=== PATIENT | male | born 1970 | race Caucasian/White ===

== ENCOUNTER 2017-11-29 13:39 | Emergency (ER) | payer SELFPAY | END 2017-11-29 15:36 | disposition left against medical advice (07) | LOC: FTE 15:36 | DX: Z53.21 Procedure and treatment not carried out due to patient leaving prior to being seen by health care provider (principal) ==

== ENCOUNTER 2019-01-02 05:54 | Observation (INO) | payer OTHER, BC ==
[2019-01-02 06:51] LABS: ADD MAN DIFF? NO
[2019-01-02 06:56] LABS: WHITE BLOOD COUNT 6.8 10^3/ul (4.8-10.8)
[2019-01-02 06:56] LABS: BASOPHILS % 0.4 % (0.0-2.0); EOSINOPHILS # 0.2 10^3/ul (0.0-0.5); EOSINOPHILS % 2.8 % (0.0-7.0); LYMPHOCYTES # 1.4 10^3/ul (0.8-2.9); LYMPHOCYTES % 20.4 % (15.0-51.0); MEAN CORPUSCULAR HEMOGLOBIN 29.2 pg (29.0-33.0); MEAN CORPUSCULAR HGB CONC 33.3 g/dl (32.0-37.0); MEAN CORPUSCULAR VOLUME 87.6 fl (82.0-101.0); MEAN PLATELET VOLUME 9.1 fl (7.4-10.4); MONOCYTE # 0.6 10^3/ul (0.3-0.9); MONOCYTES % 9.3 % (0.0-11.0); NEUTROPHIL # 4.5 10^3/ul (1.6-7.5); NEUTROPHILS % 66.8 % (39.0-77.0); PLATELET COUNT 222 10^3/UL (140-415); RED BLOOD COUNT 4.45 10^6/ul (4.70-6.10); RED CELL DISTRIBUTION WIDTH 11.9 % (11.5-14.5)
[2019-01-02] MEDS: ASPIRIN 325 MG TAB PO (06:58)
[2019-01-02 07:21] LABS: ANION GAP 12 (5-13); BLOOD UREA NITROGEN 11 mg/dl (7-20); CALCIUM 10.1 mg/dl (8.4-10.2); CARBON DIOXIDE 24 mmol/L (21-31); CHLORIDE 106 mmol/L (97-110); CREATININE 0.68 mg/dl (0.61-1.24); Estimated GFR > 60 mL/min (>60); GLUCOSE 150 mg/dl (70-220); POTASSIUM 4.5 mmol/L (3.5-5.1); SODIUM 142 mmol/L (135-144)
[2019-01-02 07:29] LABS: TROPONIN-I 0.013 ng/ml (0.000-0.120)
[2019-01-02] MEDS ORDERED: ONDANSETRON 4 MG INJ IV ×2 (09:30→15:00)
[2019-01-02] MEDS: ACETAMINOPHEN 325 MG TAB PO (11:07)
[2019-01-02 13:28] LABS: CREATINE KINASE 152 IU/L (23-200)
[2019-01-02 13:39] LABS: CK INDEX 0.8; CK-MB 1.25 ng/ml (0.0-2.4); TROPONIN-I < 0.012 ng/ml (0.000-0.120)
[2019-01-02] MEDS ORDERED: hydrALAzine 20 MG INJ IV ×2 (15:00→21:30)
[2019-01-02 16:03] LABS: HEMOGLOBIN A1C 6.7 % (0-5.9)
[2019-01-02 19:52] LABS: CREATINE KINASE 135 IU/L (23-200)
[2019-01-02 20:04] LABS: CK-MB 1.32 ng/ml (0.0-2.4); TROPONIN-I < 0.012 ng/ml (0.000-0.120)
[2019-01-02] MEDS ORDERED: NON-FORMULARY/PATIENT OWN MED (Simvastatin* (Zocor*) 40 MG) PO (21:00)
[2019-01-02] MEDS: INSULIN ASPART [NOVOLOG] 3 ML PEN SC (21:00)
[2019-01-02] MEDS ORDERED: ATORVASTATIN 10 MG TAB PO (21:00)
[2019-01-02] MEDS: FAMOTIDINE 20 MG TAB PO (21:19)
[2019-01-02] MEDS: ATORVASTATIN 20 MG TAB PO (21:19)
[2019-01-03] MEDS: ACCU-CHEK XX (02:00)
[2019-01-03 06:25] LABS: ADD MAN DIFF? NO
[2019-01-03 06:30] LABS: WHITE BLOOD COUNT 5.9 10^3/ul (4.8-10.8)
[2019-01-03 06:30] LABS: BASOPHILS % 0.5 % (0.0-2.0); EOSINOPHILS # 0.2 10^3/ul (0.0-0.5); EOSINOPHILS % 2.9 % (0.0-7.0); HEMOGLOBIN 12.6 g/dl (14.0-18.0); LYMPHOCYTES # 1.5 10^3/ul (0.8-2.9); LYMPHOCYTES % 26.2 % (15.0-51.0); MEAN CORPUSCULAR HGB CONC 33.2 g/dl (32.0-37.0); MEAN CORPUSCULAR VOLUME 87.6 fl (82.0-101.0); MEAN PLATELET VOLUME 9.1 fl (7.4-10.4); MONOCYTE # 0.6 10^3/ul (0.3-0.9); MONOCYTES % 9.4 % (0.0-11.0); NEUTROPHIL # 3.6 10^3/ul (1.6-7.5); NEUTROPHILS % 60.7 % (39.0-77.0); PLATELET COUNT 201 10^3/UL (140-415); RED BLOOD COUNT 4.34 10^6/ul (4.70-6.10); RED CELL DISTRIBUTION WIDTH 11.9 % (11.5-14.5)
[2019-01-03 07:03] LABS: ALANINE AMINOTRANSFERASE 27 IU/L (13-69); ALBUMIN 4.2 g/dl (3.3-4.9); ALKALINE PHOSPHATASE 40 IU/L (42-121); ANION GAP 9 (5-13); ASPARTATE AMINO TRANSFERASE 23 IU/L (15-46); BILIRUBIN,INDIRECT 0.7 mg/dl (0-1.1); BILIRUBIN,TOTAL 0.7 mg/dl (0.2-1.3); BLOOD UREA NITROGEN 13 mg/dl (7-20); CALCIUM 9.1 mg/dl (8.4-10.2); CARBON DIOXIDE 26 mmol/L (21-31); CHLORIDE 104 mmol/L (97-110); CHOLESTEROL 234 mg/dl (100-200); CREATININE 0.75 mg/dl (0.61-1.24); Estimated GFR > 60 mL/min (>60); GLUCOSE 137 mg/dl (70-220); HDL CHOLESTEROL 33 mg/dl (28-71); LDL CHOLESTEROL,CALCULATED 97 mg/dl; MAGNESIUM 1.9 mg/dl (1.7-2.5); POTASSIUM 4.5 mmol/L (3.5-5.1); SODIUM 139 mmol/L (135-144); TOTAL PROTEIN 7.2 g/dl (6.1-8.1); TRIGLYCERIDES 519 mg/dl (0-149)
[2019-01-03] MEDS: INSULIN ASPART [NOVOLOG] 3 ML PEN SC ×3 (07:55→17:29)
[2019-01-03] MEDS: INSULIN GLARGINE [LANTus] (100 UNITS/ML) SYG SC (08:00)
[2019-01-03] MEDS: ASPIRIN (EC) 81 MG TAB PO (08:17)
[2019-01-03] MEDS: FAMOTIDINE 20 MG TAB PO (08:17)
[2019-01-03] MEDS: LISINOPRIL 10 MG TAB PO (08:18)
[2019-01-03] MEDS: REGADENOSON 0.4 MG/5 ML SYG (12:44)
[2019-01-03] MEDS ORDERED: GLUCOSE GEL 15 GRAM TUBE BUCCAL (13:00)
[2019-01-03] MEDS ORDERED: GLUCAGON 1 MG INJ IM (13:00)
[2019-01-03] MEDS ORDERED: GLUCOSE GEL 15 GRAM TUBE PO ×2 (13:00)
[2019-01-03] MEDS ORDERED: DEXTROSE 50% 50 ML SYRINGE IV ×2 (13:00)
[2019-01-03] MEDS: ISOSORBIDE DINITRATE 10 MG TAB PO (13:14)
[2019-01-03] MEDS: ACETAMINOPHEN 325 MG TAB PO (14:35)
== END 2019-01-03 18:34 | disposition home or self-care (01) ==
LOC: E/R 05:54 → TEL 09:04
DX: R07.9 Chest pain, unspecified (principal); E11.9 Type 2 diabetes mellitus without complications; I10 Essential (primary) hypertension; E78.5 Hyperlipidemia, unspecified; Z79.84 Long term (current) use of oral hypoglycemic drugs; F17.290 Nicotine dependence, other tobacco product, uncomplicated; D64.9 Anemia, unspecified; Z97.0 Presence of artificial eye; Z82.49 Family history of ischemic heart disease and other diseases of the circulatory system
CPT/HCPCS: 36415; 71045; 78452; 80048; 80061; 80076; 82550; 82553; 82962; 83036; 83735; 84443; 84484; 85025; 93005; 93017; 93306; 99285-25; G0378

== ENCOUNTER 2019-01-12 17:08 | Emergency (ER) | payer SELFPAY, OTHER | END 2019-01-12 19:33 | disposition left against medical advice (07) | LOC: E/R 17:08 | DX: Z53.21 Procedure and treatment not carried out due to patient leaving prior to being seen by health care provider (principal) | CPT/HCPCS: 93005 ==

== ENCOUNTER 2019-01-22 18:49 | Inpatient (IN) | payer OTHER ==
[2019-01-22 20:13] LABS: ADD MAN DIFF? NO
[2019-01-22 20:14] LABS: WHITE BLOOD COUNT 7.2 10^3/ul (4.8-10.8)
[2019-01-22 20:14] LABS: BASOPHILS % 0.3 % (0.0-2.0); EOSINOPHILS # 0.1 10^3/ul (0.0-0.5); EOSINOPHILS % 1.8 % (0.0-7.0); HEMATOCRIT 34.5 % (42.0-52.0); HEMOGLOBIN 11.6 g/dl (14.0-18.0); LYMPHOCYTES # 1.7 10^3/ul (0.8-2.9); LYMPHOCYTES % 23.5 % (15.0-51.0); MEAN CORPUSCULAR HEMOGLOBIN 29.4 pg (29.0-33.0); MEAN CORPUSCULAR HGB CONC 33.6 g/dl (32.0-37.0); MEAN CORPUSCULAR VOLUME 87.3 fl (82.0-101.0); MEAN PLATELET VOLUME 9.1 fl (7.4-10.4); MONOCYTE # 0.7 10^3/ul (0.3-0.9); MONOCYTES % 9.9 % (0.0-11.0); NEUTROPHIL # 4.6 10^3/ul (1.6-7.5); NEUTROPHILS % 64.2 % (39.0-77.0); PLATELET COUNT 203 10^3/UL (140-415); RED BLOOD COUNT 3.95 10^6/ul (4.70-6.10); RED CELL DISTRIBUTION WIDTH 11.9 % (11.5-14.5)
[2019-01-22 20:33] LABS: ANION GAP 9 (5-13); BLOOD UREA NITROGEN 11 mg/dl (7-20); CARBON DIOXIDE 25 mmol/L (21-31); CHLORIDE 107 mmol/L (97-110); CREATININE 0.87 mg/dl (0.61-1.24); Estimated GFR > 60 mL/min (>60); GLUCOSE 143 mg/dl (70-220); POTASSIUM 3.9 mmol/L (3.5-5.1); SODIUM 141 mmol/L (135-144)
[2019-01-22] MEDS: ENOXAPARIN 100 MG/ML SYG SC (21:14)
[2019-01-22] MEDS: ASPIRIN 81 MG TAB PO (21:14)
[2019-01-22] MEDS: NITROGLYCERIN 2% 1 GM OINT PKT TD (21:15)
[2019-01-23] MEDS ORDERED: ONDANSETRON 4 MG INJ IV (00:30)
[2019-01-23] MEDS ORDERED: ALBUTEROL/IPRATROPIUM (NEB) 3 ML AMP HHN (00:30)
[2019-01-23] MEDS ORDERED: NACL 0.9% 3 ML SYG IV (00:30)
[2019-01-23] MEDS ORDERED: NITROGLYCERIN (SL) 0.4 MG TAB SL (00:30)
[2019-01-23 02:06] LABS: CREATINE KINASE 407 IU/L (23-200)
[2019-01-23 02:19] LABS: CK INDEX 5.5
[2019-01-23 06:08] LABS: ADD MAN DIFF? NO
[2019-01-23 06:14] LABS: WHITE BLOOD COUNT 7.3 10^3/ul (4.8-10.8)
[2019-01-23 06:14] LABS: BASOPHILS % 0.3 % (0.0-2.0); EOSINOPHILS # 0.1 10^3/ul (0.0-0.5); EOSINOPHILS % 1.9 % (0.0-7.0); HEMATOCRIT 36.1 % (42.0-52.0); HEMOGLOBIN 12.1 g/dl (14.0-18.0); LYMPHOCYTES # 1.5 10^3/ul (0.8-2.9); LYMPHOCYTES % 20.6 % (15.0-51.0); MEAN CORPUSCULAR HEMOGLOBIN 29.4 pg (29.0-33.0); MEAN CORPUSCULAR HGB CONC 33.5 g/dl (32.0-37.0); MEAN CORPUSCULAR VOLUME 87.6 fl (82.0-101.0); MEAN PLATELET VOLUME 9.7 fl (7.4-10.4); MONOCYTE # 0.6 10^3/ul (0.3-0.9); MONOCYTES % 8.4 % (0.0-11.0); NEUTROPHILS % 68.4 % (39.0-77.0); PLATELET COUNT 192 10^3/UL (140-415); RED BLOOD COUNT 4.12 10^6/ul (4.70-6.10); RED CELL DISTRIBUTION WIDTH 11.9 % (11.5-14.5)
[2019-01-23] MEDS ORDERED: GLUCAGON 1 MG INJ IM (06:30)
[2019-01-23] MEDS ORDERED: DEXTROSE 50% 50 ML SYRINGE IV ×2 (06:30)
[2019-01-23] MEDS ORDERED: GLUCOSE GEL 15 GRAM TUBE BUCCAL (06:30)
[2019-01-23] MEDS ORDERED: GLUCOSE GEL 15 GRAM TUBE PO ×2 (06:30)
[2019-01-23 07:06] LABS: ALANINE AMINOTRANSFERASE 39 IU/L (13-69); ALBUMIN 4.1 g/dl (3.3-4.9); ALBUMIN/GLOBULIN RATIO 1.36; ALKALINE PHOSPHATASE 45 IU/L (42-121); ANION GAP 10 (5-13); ASPARTATE AMINO TRANSFERASE 54 IU/L (15-46); BILIRUBIN,INDIRECT 0.7 mg/dl (0-1.1); BILIRUBIN,TOTAL 0.7 mg/dl (0.2-1.3); BLOOD UREA NITROGEN 10 mg/dl (7-20); CALCIUM 9.1 mg/dl (8.4-10.2); CARBON DIOXIDE 23 mmol/L (21-31); CHLORIDE 107 mmol/L (97-110); CHOL/HDL RATIO 4.6 RATIO; CHOLESTEROL 143 mg/dl (100-200); CREATININE 0.78 mg/dl (0.61-1.24); Estimated GFR > 60 mL/min (>60); GLUCOSE 125 mg/dl (70-220); HDL CHOLESTEROL 31 mg/dl (28-71); LDL CHOLESTEROL,CALCULATED 52 mg/dl; MAGNESIUM 1.8 mg/dl (1.7-2.5); POTASSIUM 3.9 mmol/L (3.5-5.1); SODIUM 140 mmol/L (135-144); TOTAL PROTEIN 7.1 g/dl (6.1-8.1); TRIGLYCERIDES 300 mg/dl (0-149)
[2019-01-23 07:13] LABS: HEMOGLOBIN A1C 6.4 % (0-5.9)
[2019-01-23] MEDS: INSULIN ASPART [NOVOLOG] 3 ML PEN SC ×5 (07:44→20:12)
[2019-01-23] MEDS: LISINOPRIL 10 MG TAB PO (08:15)
[2019-01-23] MEDS: RANOLAZINE (SR) 500 MG TAB PO ×2 (08:15→20:14)
[2019-01-23] MEDS: ASPIRIN (EC) 81 MG TAB PO (08:15)
[2019-01-23] MEDS: ISOSORBIDE DINITRATE 10 MG TAB PO ×3 (08:15→20:15)
[2019-01-23] MEDS: ENOXAPARIN 100 MG/ML SYG SC ×2 (08:37→20:23)
[2019-01-23] MEDS ORDERED: ENOXAPARIN 40 MG/0.4 ML SYG SC (09:00)
[2019-01-23 09:44] LABS: CREATINE KINASE 463 IU/L (23-200)
[2019-01-23 09:54] LABS: CK INDEX 6.5
[2019-01-23] MEDS: ACETAMINOPHEN 325 MG TAB PO (13:25)
[2019-01-23 15:34] LABS: CREATINE KINASE 463 IU/L (23-200)
[2019-01-23 15:44] LABS: CK INDEX 5.2
[2019-01-23] MEDS ORDERED: hydrALAzine 20 MG INJ IV (17:30)
[2019-01-23] MEDS: ATORVASTATIN 80 MG TAB PO (20:15)
[2019-01-23] MEDS ORDERED: ATORVASTATIN 40 MG TAB PO (21:00)
[2019-01-24] MEDS: ACCU-CHEK XX (01:56)
[2019-01-24] MEDS: DIAZEPAM 5 MG TAB PO (07:00)
[2019-01-24] MEDS: DIPHENHYDRAMINE 50 MG CAP PO (07:00)
[2019-01-24] MEDS: INSULIN ASPART [NOVOLOG] 3 ML PEN SC ×4 (07:55→20:29)
[2019-01-24 08:19] LABS: ADD MAN DIFF? NO
[2019-01-24] MEDS: ASPIRIN (EC) 81 MG TAB PO (08:19)
[2019-01-24] MEDS: ISOSORBIDE DINITRATE 10 MG TAB PO ×3 (08:19→20:29)
[2019-01-24] MEDS: RANOLAZINE (SR) 500 MG TAB PO ×2 (08:19→20:28)
[2019-01-24 08:28] LABS: BASOPHILS % 0.3 % (0.0-2.0); EOSINOPHILS # 0.1 10^3/ul (0.0-0.5); EOSINOPHILS % 1.9 % (0.0-7.0); HEMATOCRIT 38.6 % (42.0-52.0); LYMPHOCYTES # 1.5 10^3/ul (0.8-2.9); LYMPHOCYTES % 23.7 % (15.0-51.0); MEAN CORPUSCULAR HEMOGLOBIN 29.3 pg (29.0-33.0); MEAN CORPUSCULAR HGB CONC 33.7 g/dl (32.0-37.0); MEAN CORPUSCULAR VOLUME 86.9 fl (82.0-101.0); MONOCYTE # 0.7 10^3/ul (0.3-0.9); MONOCYTES % 11.1 % (0.0-11.0); NEUTROPHILS % 62.5 % (39.0-77.0); PLATELET COUNT 214 10^3/UL (140-415); RED BLOOD COUNT 4.44 10^6/ul (4.70-6.10); RED CELL DISTRIBUTION WIDTH 12.1 % (11.5-14.5)
[2019-01-24 08:28] LABS: WHITE BLOOD COUNT 6.3 10^3/ul (4.8-10.8)
[2019-01-24 08:45] LABS: CREATINE KINASE 270 IU/L (23-200)
[2019-01-24 08:51] LABS: PROTIME 13.3 Sec (11.9-14.9)
[2019-01-24 08:52] LABS: PARTIAL THROMBOPLASTIN TIME 35.3 Sec (23.0-35.0)
[2019-01-24 08:53] LABS: ANION GAP 10 (5-13); BLOOD UREA NITROGEN 11 mg/dl (7-20); CALCIUM 9.1 mg/dl (8.4-10.2); CARBON DIOXIDE 24 mmol/L (21-31); CHLORIDE 106 mmol/L (97-110); CREATININE 0.81 mg/dl (0.61-1.24); Estimated GFR > 60 mL/min (>60); GLUCOSE 131 mg/dl (70-220); MAGNESIUM 1.9 mg/dl (1.7-2.5); PHOSPHORUS 3.9 mg/dl (2.5-4.9); POTASSIUM 4.5 mmol/L (3.5-5.1); SODIUM 140 mmol/L (135-144)
[2019-01-24 08:57] LABS: CK INDEX 3.4
[2019-01-24 08:59] LABS: CK-MB 9.05 ng/ml (0.0-2.4)
[2019-01-24] MEDS: ATORVASTATIN 80 MG TAB PO (20:28)
[2019-01-24] MEDS: ENOXAPARIN 100 MG/ML SYG SC (20:58)
[2019-01-25] MEDS: ACCU-CHEK XX (02:00)
[2019-01-25 06:04] LABS: ADD MAN DIFF? NO
[2019-01-25 06:07] LABS: BASOPHILS % 0.3 % (0.0-2.0); EOSINOPHILS # 0.1 10^3/ul (0.0-0.5); EOSINOPHILS % 2.3 % (0.0-7.0); HEMATOCRIT 38.6 % (42.0-52.0); LYMPHOCYTES # 1.3 10^3/ul (0.8-2.9); LYMPHOCYTES % 22.3 % (15.0-51.0); MEAN CORPUSCULAR HEMOGLOBIN 29.4 pg (29.0-33.0); MEAN CORPUSCULAR HGB CONC 33.7 g/dl (32.0-37.0); MEAN CORPUSCULAR VOLUME 87.3 fl (82.0-101.0); MEAN PLATELET VOLUME 9.5 fl (7.4-10.4); MONOCYTE # 0.7 10^3/ul (0.3-0.9); MONOCYTES % 11.2 % (0.0-11.0); NEUTROPHIL # 3.8 10^3/ul (1.6-7.5); NEUTROPHILS % 63.6 % (39.0-77.0); PLATELET COUNT 204 10^3/UL (140-415); RED BLOOD COUNT 4.42 10^6/ul (4.70-6.10); RED CELL DISTRIBUTION WIDTH 11.9 % (11.5-14.5)
[2019-01-25 06:43] LABS: ANION GAP 11 (5-13); BLOOD UREA NITROGEN 13 mg/dl (7-20); CARBON DIOXIDE 23 mmol/L (21-31); CHLORIDE 106 mmol/L (97-110); CREATININE 0.83 mg/dl (0.61-1.24); Estimated GFR > 60 mL/min (>60); GLUCOSE 147 mg/dl (70-220); POTASSIUM 4.3 mmol/L (3.5-5.1); SODIUM 140 mmol/L (135-144)
[2019-01-25 07:01] LABS: PHOSPHORUS 4.3 mg/dl (2.5-4.9)
[2019-01-25] MEDS: INSULIN ASPART [NOVOLOG] 3 ML PEN SC ×4 (07:55→21:00)
[2019-01-25] MEDS: ASPIRIN (EC) 81 MG TAB PO (08:24)
[2019-01-25] MEDS: RANOLAZINE (SR) 500 MG TAB PO ×2 (08:25→21:58)
[2019-01-25] MEDS: ISOSORBIDE DINITRATE 10 MG TAB PO ×3 (08:25→21:58)
[2019-01-25] MEDS ORDERED: HEPARIN 1000 UNITS/ML 10 ML INJ (08:42)
[2019-01-25] MEDS ORDERED: VERAPAMIL 5 MG INJ (08:42)
[2019-01-25] MEDS ORDERED: MIDAZOLAM 1 MG/ML 2 ML INJ (08:42)
[2019-01-25] MEDS ORDERED: IODIXANOL LOCM 100 ML BTL (08:42)
[2019-01-25] MEDS ORDERED: LIDOCAINE 1% (MDV) 20 ML INJ (08:42)
[2019-01-25] MEDS ORDERED: NITROGLYCERIN (IC) 100 MCG/ML INJ (08:42)
[2019-01-25] MEDS ORDERED: FENTAnyl 50 MCG/ML VIAL (08:42)
[2019-01-25] MEDS ORDERED: TICAGRELOR 90 MG TABLET (10:34)
[2019-01-25] MEDS ORDERED: ASPIRIN 325 MG TAB (10:35)
[2019-01-25] MEDS ORDERED: BIVALIRUDIN 250MG /NS 50 ML 50 ML IVPB (10:45)
[2019-01-25] MEDS ORDERED: OXYCODONE/ACETAMINOPHEN (5/325) TAB PO (11:00)
[2019-01-25] MEDS ORDERED: ACETAMINOPHEN 325 MG TAB PO (11:00)
[2019-01-25] MEDS ORDERED: ONDANSETRON 4 MG INJ IV (11:00)
[2019-01-25] MEDS ORDERED: AL HYDROX/MG HYDROX/SIMETH 30 ML CUP PO (11:00)
[2019-01-25] MEDS: SOD CHLORIDE 0.9% 1,000 ML IV (11:34)
[2019-01-25] MEDS: ATORVASTATIN 80 MG TAB PO (21:26)
[2019-01-25] MEDS: TICAGRELOR 90 MG TABLET PO (21:27)
[2019-01-26] MEDS: ACCU-CHEK XX (02:00)
[2019-01-26 05:55] LABS: ADD MAN DIFF? NO
[2019-01-26 06:06] LABS: WHITE BLOOD COUNT 7.7 10^3/ul (4.8-10.8)
[2019-01-26 06:06] LABS: BASOPHILS % 0.1 % (0.0-2.0); EOSINOPHILS # 0.1 10^3/ul (0.0-0.5); EOSINOPHILS % 1.7 % (0.0-7.0); HEMOGLOBIN 12.4 g/dl (14.0-18.0); LYMPHOCYTES # 1.3 10^3/ul (0.8-2.9); LYMPHOCYTES % 16.9 % (15.0-51.0); MEAN CORPUSCULAR HEMOGLOBIN 29.2 pg (29.0-33.0); MEAN CORPUSCULAR HGB CONC 33.5 g/dl (32.0-37.0); MEAN CORPUSCULAR VOLUME 87.3 fl (82.0-101.0); MEAN PLATELET VOLUME 9.8 fl (7.4-10.4); MONOCYTE # 0.8 10^3/ul (0.3-0.9); MONOCYTES % 9.8 % (0.0-11.0); NEUTROPHIL # 5.5 10^3/ul (1.6-7.5); NEUTROPHILS % 71.2 % (39.0-77.0); PLATELET COUNT 198 10^3/UL (140-415); RED BLOOD COUNT 4.24 10^6/ul (4.70-6.10); RED CELL DISTRIBUTION WIDTH 11.9 % (11.5-14.5)
[2019-01-26 06:31] LABS: ANION GAP 11 (5-13); BLOOD UREA NITROGEN 11 mg/dl (7-20); CALCIUM 9.1 mg/dl (8.4-10.2); CARBON DIOXIDE 23 mmol/L (21-31); CHLORIDE 106 mmol/L (97-110); CREATININE 0.86 mg/dl (0.61-1.24); Estimated GFR > 60 mL/min (>60); GLUCOSE 137 mg/dl (70-220); POTASSIUM 4.2 mmol/L (3.5-5.1); SODIUM 140 mmol/L (135-144)
[2019-01-26] MEDS: INSULIN ASPART [NOVOLOG] 3 ML PEN SC ×2 (07:35→12:21)
[2019-01-26] MEDS: ISOSORBIDE DINITRATE 10 MG TAB PO ×2 (08:42→12:52)
[2019-01-26] MEDS: TICAGRELOR 90 MG TABLET PO (08:46)
[2019-01-26] MEDS: RANOLAZINE (SR) 500 MG TAB PO (08:47)
[2019-01-26] MEDS: ASPIRIN (EC) 81 MG TAB PO (08:47)
[2019-01-26] MEDS ORDERED: ASPIRIN (EC) 81 MG TAB PO (09:00)
[2019-01-26] MEDS ORDERED: METOPROLOL 25 MG TAB PO (21:00)
== END 2019-01-26 15:55 | disposition home or self-care (01) | DRG 247 ==
LOC: TEL 22:11 → E/R 18:49 → TEL 01-23 01:37 → ICU 01-25 20:30
PROC: 4A023N7 Measurement of Cardiac Sampling and Pressure, Left Heart, Percutaneous Approach (ICD-10-PCS; principal; 2019-01-25 08:42)
PROC: 027135Z Dilation of Coronary Artery, Two Arteries with Two Drug-eluting Intraluminal Devices, Percutaneous Approach (ICD-10-PCS; 2019-01-25 08:42)
PROC: B211YZZ Fluoroscopy of Multiple Coronary Arteries using Other Contrast (ICD-10-PCS; 2019-01-25 08:42)
DX: I21.4 Non-ST elevation (NSTEMI) myocardial infarction (principal); E11.8 Type 2 diabetes mellitus with unspecified complications; E78.5 Hyperlipidemia, unspecified; I10 Essential (primary) hypertension; I25.10 Atherosclerotic heart disease of native coronary artery without angina pectoris
CPT/HCPCS: 36415; 71045; 80048; 80053; 80061; 82550; 82553; 82962; 83036; 83735; 84100; 84443; 84484; 85025; 85610; 85730; 87081; 92928; 92929; 93005; 93458; 96372; 99285-25